=== PATIENT | female | born 1995 | race Two or more races ===

== ENCOUNTER 2016-03-27 15:50 | Emergency (ER) | payer OTHER ==
[~2016-03-27] VITALS: Ht 165.1 cm; Wt 112.4 kg
[~2016-03-27 15:50] MED LIST: AMOXICILLIN500 MG PO; Micronor,Nor-Q-D,Err PO; Motrin PO; NO HOME MEDS; NOHOMEMEDS; PEPCID20 MG PO; PROMETHAZINE HC25 M1 PO; TRAMADOL HCL50 MG PO; ~No Medications
[2016-03-27 16:51] LABS: HEMATOCRIT 34.3 % (36.0-46.0); MCH 30.3 PG (29.0-34.0); MCHC 34.1 G/DL (30.0-36.0); MCV 88.9 FL (83-99); MEAN PLAT.VOLUME 9.8 uM^3 (9.5-12.4); PLATELET COUNT 255 K/uL (156-360); RBC DIS.WIDTH-CV 12.1 % (11.8-14.6); RBC DIS.WIDTH-SD 38.2 % (39-53); RED BLOOD COUNT 3.86 M/uL (3.80-5.20); WHITE BLOOD COUNT 7.9 K/uL (4.1-10.2)
[2016-03-27 17:11] LABS: ANION GAP 7 MEQ/L (2-14); CHLORIDE 104 MEQ/L (99-109); POTASSIUM 3.8 MEQ/L (3.7-5.4); SAMPLE HEMOLYSIS CHECK 0; SAMPLE ICTERIC CHECK 0; SAMPLE LIPEMIA CHECK 0; SODIUM 136 MEQ/L (136-147)
[2016-03-27 17:16] LABS: GFR ESTIMATE (CALCULATED) > 59 mL/min/; GLUCOSE 83 mg/dL (70-99); UREA NITROGEN (BUN) 10 mg/dL (9-23)
[2016-03-27 17:22] LABS: INFLUENZA A VIRAL ANTIGEN POSITIVE; INFLUENZA B VIRAL ANTIGEN NEGATIVE
[2016-03-27] MEDS ORDERED: TAMIFLU75 MG PO (17:35)
[2016-03-27] MEDS ORDERED: MOTRIN800 MG PO (17:35)
[2016-03-27 17:46] VITALS: BP 136/79
== END 2016-03-27 17:47 | disposition home or self-care (01) ==
LOC: EME 15:50
PROVIDERS: Nurse Practitioner Family
DX: J10.1 Influenza due to other identified influenza virus with other respiratory manifestations (principal); Z91.041 Radiographic dye allergy status
CPT/HCPCS: 71020; 80048; 85027; 87502; 99281; 99284; J1885

== ENCOUNTER 2016-03-31 14:18 | Emergency (ER) | payer OTHER ==
[~2016-03-31] VITALS: Ht 165.1 cm; Wt 111.9 kg
[~2016-03-31 14:18] MED LIST changes: +MOTRIN800 MG PO; +TAMIFLU75 MG PO
[2016-03-31 15:46] LABS: HEMATOCRIT 35.9 % (36.0-46.0); MCH 30.5 PG (29.0-34.0); MCHC 34.8 G/DL (30.0-36.0); MCV 87.6 FL (83-99); MEAN PLAT.VOLUME 9.9 uM^3 (9.5-12.4); PLATELET COUNT 286 K/uL (156-360); RBC DIS.WIDTH-CV 12.1 % (11.8-14.6); RBC DIS.WIDTH-SD 37.7 % (39-53); WHITE BLOOD COUNT 7.2 K/uL (4.1-10.2)
[2016-03-31 15:56] LABS: CHLORIDE 107 mEq/L (99-109); POTASSIUM 3.9 mEq/L (3.7-5.4); SODIUM 138 mEq/L (136-147)
[2016-03-31 15:57] LABS: GLUCOSE 80 mg/dL (70-99)
[2016-03-31 15:59] LABS: ANION GAP 9 MEQ/L (2-14)
[2016-03-31 16:01] LABS: GFR ESTIMATE (CALCULATED) > 59 mL/min/
[2016-03-31 16:02] LABS: UREA NITROGEN (BUN) 10 mg/dL (9-23)
[2016-03-31 16:21] VITALS: BP 119/71
== END 2016-03-31 16:21 | disposition home or self-care (01) ==
LOC: EME 14:18
DX: J11.1 Influenza due to unidentified influenza virus with other respiratory manifestations (principal); R53.83 Other fatigue; R42 Dizziness and giddiness; J45.909 Unspecified asthma, uncomplicated
CPT/HCPCS: 71020; 80048; 85027; 99281; 99284